=== PATIENT | female | born 1955 | race Caucasian/White ===

== ENCOUNTER → 2020-01-12 | Outpatient (CLI) | payer MEDICARE, OTHER ==
[~2020-01-12] MED LIST: OMNIPAQUE 350 MG/ML, 100ML BOTTLE ONE
== END | disposition home or self-care (01) ==
LOC: RAD 12:00
PROVIDERS: ATTEND Nurse Practitioner Family
DX: M50.30 Other cervical disc degeneration, unspecified cervical region (principal); I65.22 Occlusion and stenosis of left carotid artery
CPT/HCPCS: 70491; Q9967

== ENCOUNTER → 2020-01-16 | Outpatient (CLI) | payer MEDICARE, OTHER | END | disposition home or self-care (01) | LOC: CFH 14:47 | PROVIDERS: ATTEND Nurse Practitioner Family | DX: I65.23 Occlusion and stenosis of bilateral carotid arteries (principal); E78.01 Familial hypercholesterolemia | CPT/HCPCS: 93880 ==

== ENCOUNTER → 2020-10-01 | Outpatient (CLI) | payer MEDICARE, OTHER | END | disposition home or self-care (01) | LOC: CVU 10:50 | PROVIDERS: ATTEND Surgery Vascular Surgery | DX: I65.23 Occlusion and stenosis of bilateral carotid arteries (principal); E78.00 Pure hypercholesterolemia, unspecified; E11.9 Type 2 diabetes mellitus without complications | CPT/HCPCS: 93880 ==